=== PATIENT | female | born 1975 | race Caucasian/White ===

== ENCOUNTER 2023-08-11 09:03 | Emergency (ER) | payer MEDICAID ==
[~2023-08-11] VITALS: Ht 170.2 cm; Wt 84.1 kg
[2023-08-11] MEDS ORDERED: METHOCARBAMOL 500 MG TABLET PO ONE (10:00)
[2023-08-11] MEDS ORDERED: KETOROLAC TROMETHAMINE 60 MG/2 ML VIAL IM ONE (10:00)
[2023-08-11] MEDS ORDERED: LIDOCAINE 5% TRANSDERMAL PATCH TD ONE (10:00)
[2023-08-11] MEDS ORDERED: IBUP-1492 PO (11:08)
[2023-08-11] MEDS ORDERED: PERCT PO (11:09)
[2023-08-11] MEDS ORDERED: METH-659 PO (11:09)
[2023-08-11 11:30] VITALS: TEMP 98.5
[2023-08-11 11:31] VITALS: BP 118/86; PULSE 75; RESP 18
== END 2023-08-11 11:39 | disposition home or self-care (01) ==
LOC: EMS 09:03
DX: S16.1XXA Strain of muscle, fascia and tendon at neck level, initial encounter (principal); M43.6 Torticollis; E78.00 Pure hypercholesterolemia, unspecified; X58.XXXA Exposure to other specified factors, initial encounter; Y93.89 Activity, other specified; Y92.89 Other specified places as the place of occurrence of the external cause; Y99.8 Other external cause status
CPT/HCPCS: 99283; 96372; J1885